=== PATIENT | male | born 1940 | race Caucasian/White ===

== ENCOUNTER 2017-10-15 09:26 | Outpatient (RCR) | payer MEDICARE, OTHER ==
[~2017-10-15 09:26] MED LIST: ALPR-429 PO; ASP325 PO; ASPI-1471 PO; ASPIRIN; BUSP15TA69 PO; DILANTIN; ESCI10TA8 PO; ESCI5TAB10 PO; EZET1TAB81 PO; FAMO-67 PO; HYDR-389 PO; IBUP600T22 PO; LEVO-85 PO; LEXAPRO; LIPITOR; LORA-630 PO; NAPR220C12 PO; PAN40 PO; PHEN100 PO; PHEN100C82 PO; PHEN200T32 PO; TAMS0.4C76 PO; XANAX; [UNRECOGNIZED DRUG - OTHER] OS
[2017-10-15 09:56] VITALS: BP 137/63
[2017-10-15 10:02] LABS: PLATELET COUNT, AUTOMATED 176 K/uL (150-450)
[2017-10-16] MEDS ORDERED: SENN-187 PO (09:10)
[2017-10-16] MEDS ORDERED: CALC-521 PO (09:10)
[2017-10-17] MEDS ORDERED: LORA-630 PO (08:39)
[2017-10-17] MEDS ORDERED: ESCI10TA8 PO (08:43)
[2017-10-17] MEDS ORDERED: EZET1TAB81 PO (08:43)
== END 2017-10-22 15:16 | disposition home or self-care (01) ==
LOC: SPU 09:26
PROVIDERS: ATTEND Radiology Radiation Oncology
DX: Z85.46 Personal history of malignant neoplasm of prostate (principal); Z92.3 Personal history of irradiation; Z79.82 Long term (current) use of aspirin; Z79.899 Other long term (current) drug therapy
CPT/HCPCS: 36415; 85025; G0463; 99212

== ENCOUNTER 2018-04-15 07:52 | Outpatient (RCR) | payer MEDICARE, OTHER ==
[~2018-04-15 07:52] MED LIST changes: +AMOX-559 PO; +CALC-521 PO; +CLOB15OI16 TP; +HYDR30CR10 TP; +SENN-187 PO
[2018-04-24] MEDS ORDERED: PHEN100C82 PO (08:52)
== END 2018-04-23 15:49 | disposition home or self-care (01) ==
LOC: RAON 07:52
PROVIDERS: ATTEND Radiology Radiation Oncology
DX: C61 Malignant neoplasm of prostate (principal)
CPT/HCPCS: 99212

== ENCOUNTER 2018-09-17 08:03 | Outpatient (RCR) | payer MEDICARE, OTHER | END 2018-09-21 | LOC: SPU 08:03 | PROVIDERS: ATTEND Radiology Radiation Oncology | DX: C61 Malignant neoplasm of prostate (principal); C44.602 Unspecified malignant neoplasm of skin of right upper limb, including shoulder; Z92.3 Personal history of irradiation; Z79.899 Other long term (current) drug therapy | CPT/HCPCS: 99212 ==

== ENCOUNTER 2018-09-23 08:59 | Outpatient (RCR) | payer MEDICARE, OTHER ==
--- NOTE | 2018-09-23 10:40 | ONCOLOGY FOLLOW UP NOTE ---
EVENT DATE: September 23, 2018 REASON FOR VISIT Ongoing prostrate cancer surveillance. Recheck skin of posterior shoulder following excision. ONCOLOGY HISTORY [place] 6/10 moderately differentiated adenocarcinoma of the prostate. Patient presented with a PSA of 9 ng/mL of 3 out of [address] Avalos. Tumor occupied 60% of the right lateral base, 15% of the right lateral middle biopsy and 20% of the right lateral biopsies. Stage T1c N0 M0. INTERVAL HISTORY Patient is a 78-year-old history who was previously treated with external beam radiation therapy for prostrate carcinoma in this department. He was diagnosed with prostate cancer in March 2017. He received 7740 cGy with standard fractionation with multi-field treatment technique. PSA continues to fall from his last visit. Last visit PSA was 1.0. New PSA is 0.6 ng/mL. No voiding complaints. Since I saw the patient last, he has had a skin cancer removed over the upper back and, fortunately, the margins were clear and procedure went smoothly. Patient's main complaint today is unrelated to his oncology diagnosis. He wished to discuss with me his feelings of nightmares, intermittent depression, intermittent anxiety, intermittent panic attacks. The patient is on Lexapro at this time but not taking this on a regular basis. I encouraged him to do so. I did research in front of the patient as his request on the up-to-date literature regarding adult nightmares. This is fairly common in the general population (80%-85%). Patients who have weekly nightmares are 2%-6%, however. The author stated the nightmares are frequently found in individuals with depression or PTSD, etc. At the end of the article, they talked about a medication called prazosin, which is an alpha receptor antagonist. I have familiarity with the medication so I told the patient I would not be prescribing that but I would encourage him to follow up with Dr. Gillespie so that whatever is prescribed can be followed closely. I also mentioned to him that he may be a candidate for professional counseling on a regular basis. The patient actually took the suggestions well in my opinion. He asked me if he was okay in travel in December in [facility] and from my standpoint I believe he is. Patient was pleased with the PSA and his prostate cancer, PSA and anxiety have improved with time. MEDICATIONS 1. Aspirin 81 mg a day. 2. Tamsulosin 0.4 mg a day. 3. Lexapro 10 mg a day. 4. Lorazepam 1/4 to 1/2 tablet p.r.n. severe anxiety. 5. Phenytoin 100 mg capsule. 6. Vytorin 10/20 q day. 7. Flomax 0.4 mg q evening. . ALLERGIES None listed. PAST MEDICAL HISTORY 1. BPH. 2. Anxiety/depression. 3. DJD. 4. Prostate cancer. 5. History of seizure disorder. PAST SURGICAL HISTORY 1. Five-vessel bypass in 2009. 2. Skin carcinoma removal from the left posterior shoulder. 3. Removal of basal cell carcinoma, February 2018. SOCIAL HISTORY with adult children. 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 REVIEW OF SYSTEMS Comprehensive review of systems noted for items listed in the HPI. PHYSICAL EXAMINATION GENERAL: Pleasant, anxious 78-year-old male. VITAL SIGNS: BP 117/70, pulse 88, respirations 16, O2 sat 92% on room air. NECK: No lymphadenopathy. LUNGS: Clear bilaterally. HEART: Regular. ABDOMEN: No gross organomegaly. RECTAL EXAM: Deferred. Normal PSA. IMPRESSION Patient is doing well. I reassured him today that everything is going fine from our standpoint. His blood work is normal and he appears to have a recent CBC and CMP. PLAN 1. Return to clinic in six months with follow up PSA. 2. Patient is to make an appointment with Dr. Gillespie to discuss other unrelated medical issues for appropriate resources or treatment. Clinical visit was completed in 40 minutes and all questions were answered to the patient's satisfaction, I believe. NICOLETTE
== END 2018-10-13 08:44 | disposition home or self-care (01) ==
LOC: RAON 08:59
PROVIDERS: ATTEND Radiology Radiation Oncology
DX: C61 Malignant neoplasm of prostate (principal); C44.602 Unspecified malignant neoplasm of skin of right upper limb, including shoulder; Z92.3 Personal history of irradiation; Z79.899 Other long term (current) drug therapy; Z79.82 Long term (current) use of aspirin; F51.5 Nightmare disorder; F41.8 Other specified anxiety disorders
CPT/HCPCS: 99212

== ENCOUNTER → 2018-10-21 | Outpatient (CLI) | payer MEDICARE, OTHER | LOC: AMB 10:17 | PROVIDERS: ATTEND Nurse Practitioner | DX: R09.2 Respiratory arrest (principal); I46.9 Cardiac arrest, cause unspecified; R23.0 Cyanosis | CPT/HCPCS: A0425; A0433 ==